=== PATIENT | female | born 1980 | race Caucasian/White ===

== ENCOUNTER 2020-08-11 17:29 | Emergency (ER) | payer OTHER ==
[~2020-08-11 17:29] MED LIST: KEFLEX CAP 500500 MG PO; PHENERGAN 25 MG25 M1 PO; PHENERGAN25 MG PR; ZOFRAN 8 MG TAB8 MG PO; ZOFRAN ODT 4 MG4 MG SL; ZOFRAN4 MG PO
== END 2020-08-11 18:38 | disposition left against medical advice (07) ==
LOC: ER1 17:29
DX: Z53.21 Procedure and treatment not carried out due to patient leaving prior to being seen by health care provider (principal)

== ENCOUNTER 2020-10-23 21:00 | Emergency (ER) | payer OTHER | END 2020-10-23 23:45 | disposition home or self-care (01) | LOC: ER1 21:00 | DX: S61.012A Laceration without foreign body of left thumb without damage to nail, initial encounter (principal); Z23 Encounter for immunization; Z88.2 Allergy status to sulfonamides; X58.XXXA Exposure to other specified factors, initial encounter | CPT/HCPCS: 12001; 90715; 99282 ==

== ENCOUNTER 2021-01-08 17:38 | Emergency (ER) | payer OTHER | END 2021-01-08 18:05 | disposition left against medical advice (07) | LOC: ER1 17:38 | DX: Z53.21 Procedure and treatment not carried out due to patient leaving prior to being seen by health care provider (principal) ==